=== PATIENT | male | born 1995 | race Caucasian/White ===

== ENCOUNTER 2017-03-08 13:55 | Emergency (ER) | payer OTHER, MEDICAID ==
[~2017-03-08 13:55] MED LIST: BACTROBAN15 GM TP; CIPRO HC OTIC S10 M1 LEFT EAR; COAGULATION FACTOR VIIA RECOMBINANT IV; DELTASONE10 MG PO; DILAUDID2 MG PO; DURAGESIC1 PATCH .7 TOP; H PO; HUMALOG100 U/ML; HUMALOG100 U/ML SQ; HUMALOG100 UNITS/; KEFLEX500 M4 PO; LANTUS100 U/ML; LANTUS100 U/ML SC; LANTUS100 UNITS/ SC; LEVEMIR100 UNITS/ SC; MONOJECT PREFIL10 M1 IJ; NORCO 10/325 TA1 TAB PO; NORCO 5-325 TA1 EACH PO; NORCO 5/325 TAB1 TAB PO; NORCO 5/3251 TA1 PO; NORCO PO; NOVO; NOVOLOG100 U/M; NOVOLOG100 U/M SQ; NOVOSEVEN RT IV; OXYCODONE; OXYCODONE HCL5 MG; OXYCODONE HCL5 MG PO; PERCOCET 5-3251 EACH PO; PERCOLONE5 MG PO; PREDNISONE20 MG PO; PROAIR HFA8.5 GM INH; SALINE LOCK MAIN1 EA IVP; SENNA8.6 M PO; SENNA8.6 M1 PO; TYLENOL #31 TA1 PO; TYLENOL W/CODEI1 TAB; TYLENOL W/CODEI1 TAB PO; TYLENOL325 M1 PO; ULTRAM50 M1 PO; WELLBUTRIN SR150 MG PO; [UNRECOGNIZED DRUG - OTHER]; [UNRECOGNIZED DRUG - OTHER]; [UNRECOGNIZED DRUG - OTHER] IV
[2017-03-08 14:59] LABS: BASO % 0.6 % (0-2); EOS % 2.5 % (0-7); EOSINOPHIL ABSOLUTE COUNT 0.2 tho/cmm (0.0-0.7); HCT-HEMATOCRIT 36.1 % (36.0-53.5); IMMATURE GRANULOCYTES ABSOLUTE 0.02 tho/cmm (0-0.03); IMMATURE GRANULOCYTES PERCENT 0.3 % (0-0.3); LYMPH % 21.3 % (20-45); LYMPH ABSOLUTE COUNT 1.5 tho/cmm (0.8-4.5); MCH (MEAN CORPUSCULAR HGB) 26.7 pg (28.0-32.0); MCHC MEAN CORPUSCULAR HGB CONC 33.2 % (32.0-36.0); MCV (MEAN CELL VOLUME) 80.2 fl (82.0-96.0); MEAN PLATELET VOLUME 9.3 cmc (9.4-12.4); MONOCYTE ABSOLUTE COUNT 0.6 tho/cmm (0.0-1.2); NEUTROPHIL ABSOLUTE COUNT 4.6 tho/cmm (1.6-8.0); NEUTROPHIL-AUTOMATED 4.6 tho/cmm (1.6-8.0); NEUTROPHILS % 67.3 % (40-80); PLATELET COUNT 368 tho/cmm (150-450); RED CELL DISTRIBUTION WIDTH 14.5 % (12.4-16.4); WHITE BLOOD COUNT 6.9 tho/cmm (4.0-10.0)
[2017-03-08 15:08] LABS: ANION GAP 15 mmol/L (0-20); BLOOD UREA NITROGEN 16 mg/dl (6-24); CALCIUM 8.7 mg/dl (8.5-10.5); CARBON DIOXIDE-VENOUS 23 mmol/L (22-32); CHLORIDE 103 mmol/l (96-110); CREATININE 0.83 mg/dl (0.60-1.30); GLUCOSE 340 mg/dL (70-110); SODIUM 137 mmol/L (135-145); eGFR VALUE FOR BLACK >90 mL/Min
[2017-03-28] MEDS ORDERED: LANTUS100 UNITS/ SC (09:20)
[2017-03-28] MEDS ORDERED: OXYCODONE-ACET1 EAC3 PO (10:44)
== END 2017-03-08 16:13 ==
LOC: EDMED 13:55
PROVIDERS: Emergency Medicine
PROC: 0HQ0XZZ Repair Scalp Skin, External Approach (ICD-10-PCS; principal; 2017-03-08)
DX: S09.90XA Unspecified injury of head, initial encounter (principal); S01.01XA Laceration without foreign body of scalp, initial encounter; D66 Hereditary factor VIII deficiency; I95.1 Orthostatic hypotension; E10.9 Type 1 diabetes mellitus without complications; F17.220 Nicotine dependence, chewing tobacco, uncomplicated; W01.0XXA Fall on same level from slipping, tripping and stumbling without subsequent striking against object, initial encounter; Y92.019 Unspecified place in single-family (private) house as the place of occurrence of the external cause; Z79.4 Long term (current) use of insulin; Z79.899 Other long term (current) drug therapy
CPT/HCPCS: J7030; J7189